=== PATIENT | male | born 1955 | race Caucasian/White ===

== ENCOUNTER → 2017-03-31 | Outpatient (CLI) | payer OTHER | LOC: HEART 5 09:31 | DX: R06.02 Shortness of breath (principal); Z79.899 Other long term (current) drug therapy | CPT/HCPCS: 94010; 94729 ==

== ENCOUNTER → 2021-08-31 | Outpatient (CLI) | payer MEDICARE ==
[~2021-08-31] MED LIST: ALLOPURINOL300 MG PO; AMIODARONE HCL200 MG PO; ASPIRIN81 MG PO; ATIVAN0.5 MG PO; BUSPIRONE HCL7.5 MG PO; CATAPRES0.2 MG PO; COZAAR50 MG PO; HYDRALAZINE HCL50 MG PO; IMDUR ER TAB 6060 MG PO; KLOR-CON M2020 MEQ PO; LANOXIN125 MCG PO; LASIX 40 MG TAB40 MG PO; TOPROL XL100 MG PO; ZAROXOLYN/DIULO5 MG PO; ZOCOR 10 MG TAB10 MG PO
== END ==
LOC: HEART 5 09:36
DX: R06.02 Shortness of breath (principal)
CPT/HCPCS: 94060; 94729

== ENCOUNTER 2021-09-09 11:11 | Inpatient (IN) | payer MEDICARE, OTHER ==
[~2021-09-09] VITALS: Ht 177.8 cm; Wt 162.3 kg
[2021-09-09 12:46] LABS: HEMOGLOBIN 15.5 gm/dl (14.0-17.5); RED BLOOD COUNT 5.07 M/UL (4.20-5.50); WHITE BLOOD COUNT 10.5 K/UL (4.5-11.0)
[2021-09-09 13:35] LABS: BUN/CREATININE RATIO 21 (0-10)
[2021-09-09] MEDS ORDERED: AMIODARONE HCL200 MG PO (16:42)
[2021-09-09] MEDS ORDERED: ISOSORBIDE MONO60 MG PO (16:43)
[2021-09-09] MEDS ORDERED: CLONIDINE HCL0.2 MG PO (16:43)
[2021-09-09] MEDS ORDERED: SERTRALINE HCL100 MG PO (16:44)
[2021-09-09] MEDS ORDERED: METOPROLOL SUC100 MG PO (16:44)
[2021-09-09] MEDS ORDERED: SIMVASTATIN20 MG PO (16:44)
[2021-09-09] MEDS ORDERED: TORSEMIDE100 MG PO (16:45)
[2021-09-09] MEDS ORDERED: LEVOTHYROXINE125 MCG PO (16:45)
[2021-09-09] MEDS ORDERED: HYDRALAZINE HC100 MG PO (16:45)
[2021-09-09] MEDS ORDERED: POTASSIUM CHLO20 ME2 PO (16:46)
[2021-09-09] MEDS ORDERED: ALLOPURINOL300 MG PO (16:46)
[2021-09-09] MEDS ORDERED: BAYER CHEWABLE81 MG PO (16:47)
[2021-09-09] MEDS ORDERED: DRAMAMINE25 MG PO (16:47)
[2021-09-09] MEDS ORDERED: MEXILETINE HCL200 MG PO (17:06)
[2021-09-10 07:26] LABS: HEMOGLOBIN 13.7 gm/dl (14.0-17.5); RED BLOOD COUNT 4.59 M/UL (4.20-5.50)
[2021-09-11 06:05] LABS: RED BLOOD COUNT 4.35 M/UL (4.20-5.50)
--- NOTE | 2021-09-11 18:22 | NUR ---
BOTH HOSPITALIST AND ROSALIO HAS BEEN NOTIFIED OF PT RED URINE, BLOODY WAS TOLD BY DR SANTAMARIA TO FLUSH/IRRIGATE PT CATHETER W/ 200 ML OF NS IF PT URINE GOT GAS SHOVEL OPERATOR TO NOT START ON BLADDER IRRIGATION 200 ML OF WATER IRRIGATED INTO CATHETER AND URINE IS NOW GAS SHOVEL OPERATOR RED THAN BEFORE WCTM....
[2021-09-15 04:41] LABS: HEMOGLOBIN 13.3 gm/dl (14.0-17.5); RED BLOOD COUNT 4.42 M/UL (4.20-5.50); WHITE BLOOD COUNT 6.5 K/UL (4.5-11.0)
[2021-09-16] MEDS ORDERED: BUMETANIDE1 MG PO (13:13)
[2021-09-16] MEDS ORDERED: METOPROLOL SUCC50 MG PO (13:13)
[2021-09-16] MEDS ORDERED: ALLOPURINOL100 MG PO (13:36)
== END 2021-09-16 16:39 | disposition home health service (06) | DRG 291 ==
LOC: ER1 11:11 → MED SURG 4 16:02 → CDU 16:02 → MED SURG 4 18:41
PROVIDERS: Internal Medicine Nephrology; Physician Assistant; Student in an Organized Health Care Education/Training Program; ADMIT Internal Medicine
PROC: B24BZZ4 Ultrasonography of Heart with Aorta, Transesophageal (ICD-10-PCS; principal; 2021-09-10)
DX: I13.0 Hypertensive heart and chronic kidney disease with heart failure and stage 1 through stage 4 chronic kidney disease, or unspecified chronic kidney disease (principal); J96.21 Acute and chronic respiratory failure with hypoxia; I50.23 Acute on chronic systolic (congestive) heart failure; I47.1 Supraventricular tachycardia; Z20.822 Contact with and (suspected) exposure to COVID-19; N17.9 Acute kidney failure, unspecified; Z68.43 Body mass index [BMI] 50.0-59.9, adult; N30.01 Acute cystitis with hematuria; I31.3 Pericardial effusion (noninflammatory); I42.0 Dilated cardiomyopathy; G47.33 Obstructive sleep apnea (adult) (pediatric); E03.9 Hypothyroidism, unspecified; E87.5 Hyperkalemia; E66.01 Morbid (severe) obesity due to excess calories; I25.10 Atherosclerotic heart disease of native coronary artery without angina pectoris; N18.30 Chronic kidney disease, stage 3 unspecified; I08.1 Rheumatic disorders of both mitral and tricuspid valves; I27.20 Pulmonary hypertension, unspecified; Z95.810 Presence of automatic (implantable) cardiac defibrillator; Z79.01 Long term (current) use of anticoagulants; Z79.82 Long term (current) use of aspirin; Z79.899 Other long term (current) drug therapy
CPT/HCPCS: ECHO; 36415; 36600; 71045; 80048; 80053; 81001; 82550; 82553; 82803; 82962; 83874; 83880; 84439; 84443; 84484; 85025; 85379; 90686; 93005; 93306; 94660; 94760; 96374; 96375; 96376; 97110-GP-CQ; 97116-GP-CQ; 97163; 99285; A6212; G0008; J0696; J1250; J1650; J1940; P9047; U0002

== ENCOUNTER → 2022-04-21 | Outpatient (CLI) | payer MEDICARE ==
[~2022-04-21] MED LIST changes: +ALLOPURINOL100 MG PO; +BAYER CHEWABLE81 MG PO; +BUMETANIDE1 MG PO; +CLONIDINE HCL0.2 MG PO; +DRAMAMINE25 MG PO; +HYDRALAZINE HC100 MG PO; +ISOSORBIDE MONO60 MG PO; +LEVOTHYROXINE125 MCG PO; +METOPROLOL SUC100 MG PO; +METOPROLOL SUCC50 MG PO; +MEXILETINE HCL200 MG PO; +POTASSIUM CHLO20 ME2 PO; +SERTRALINE HCL100 MG PO; +SIMVASTATIN20 MG PO; +TORSEMIDE100 MG PO
== END ==
LOC: WCC 07:10
DX: S91.106A Unspecified open wound of unspecified lesser toe(s) without damage to nail, initial encounter (principal); S80.211A Abrasion, right knee, initial encounter; G47.30 Sleep apnea, unspecified; I50.9 Heart failure, unspecified; I87.303 Chronic venous hypertension (idiopathic) without complications of bilateral lower extremity; M62.81 Muscle weakness (generalized); E66.9 Obesity, unspecified; N18.6 End stage renal disease; Z91.81 History of falling; X58.XXXA Exposure to other specified factors, initial encounter

== ENCOUNTER → 2022-07-07 | Outpatient (CLI) | payer MEDICARE ==
[~2022-07-07] MED LIST changes: +ATORVASTATIN CA80 MG PO; +BUSPAR 10MG10 MG PO; +CEPHALEXIN500 M1 PO; +CLEOCIN HCL300 MG PO; +EFFER-K 20 MEQ20 MEQ PO; +ELIQUIS 5 MG TAB5 MG PO; +ELIQUIS5 MG PO; +ENTRESTO 49 MG1 EACH PO; +FARXIGA10 MG PO; +HYDROCODON-ACE1 EAC4 PO; +MAGNESIUM CITR100 MG PO; +TOPROL XL25 MG PO
[2022-07-07 12:36] LABS: RED BLOOD COUNT 5.02 M/UL (4.20-5.50); WHITE BLOOD COUNT 6.8 K/UL (4.5-11.0)
== END ==
LOC: LAB 11:49
PROVIDERS: Internal Medicine Cardiovascular Disease
DX: Z45.02 Encounter for adjustment and management of automatic implantable cardiac defibrillator (principal); I11.0 Hypertensive heart disease with heart failure; I50.22 Chronic systolic (congestive) heart failure; I42.0 Dilated cardiomyopathy; I45.4 Nonspecific intraventricular block; R91.8 Other nonspecific abnormal finding of lung field
CPT/HCPCS: 36415; 71046; 80048; 85025

== ENCOUNTER → 2022-07-09 | Outpatient (CLI) | payer MEDICARE | LOC: CATH 07:25 | DX: Z45.02 Encounter for adjustment and management of automatic implantable cardiac defibrillator (principal); I42.0 Dilated cardiomyopathy; I11.0 Hypertensive heart disease with heart failure; I50.22 Chronic systolic (congestive) heart failure; I47.2 Ventricular tachycardia; N18.9 Chronic kidney disease, unspecified; I48.92 Unspecified atrial flutter; E78.5 Hyperlipidemia, unspecified; E03.2 Hypothyroidism due to medicaments and other exogenous substances; E66.01 Morbid (severe) obesity due to excess calories; M10.9 Gout, unspecified; Z98.890 Other specified postprocedural states; Z79.899 Other long term (current) drug therapy; Z95.810 Presence of automatic (implantable) cardiac defibrillator; Z79.82 Long term (current) use of aspirin; Z68.37 Body mass index [BMI] 37.0-37.9, adult | CPT/HCPCS: 93641; 99152; 99153; C1882; J2250; J3010; J3370; J7040; J7050 ==